=== PATIENT | female | born 1950 | race Caucasian/White ===

== ENCOUNTER 2020-04-27 19:53 | Observation (INO) | payer MEDICARE ==
[~2020-04-27] VITALS: Ht 170.2 cm; Wt 89.0 kg
[~2020-04-27 19:53] MED LIST: ASPI-515 PO; ATOR40TA78 PO; CARV12.52 PO; CARV25TA12 PO; CEPH-376 PO; CLOP75TA PO; HYDR-3237 PO; LEVO112T2 PO; LISI5TAB7 PO
--- NOTE | 2020-04-27 20:12 | NUR ---
PT ATTACHED TO MONITORS. EKG PERFORMED. ERP IN TO ASSESS. PT DENIES ANY FURTHER NEEDS. PROVIDED WITH A WARM BLANKET, CALL LIGHT IN REACH.
[2020-04-27 20:28] LABS: BASOPHILS % (AUTO) 1 % (0-1); EOSINOPHILS % (AUTO) 8 % (1-7); LYMPHOCYTES % (AUTO) 22 % (22-44); MEAN CORPUSCULAR HEMOGLOBIN 29.3 pg (27.0-34.8); MEAN CORPUSCULAR HGB CONC 33.4 g/dL (32.4-35.8); MEAN PLATELET VOLUME 7.6 fL (7.4-10.4); MONOCYTES % (AUTO) 11 % (2-9); NEUTROPHILS % (AUTO) 58 % (42-75); PLATELET COUNT 334 x10^3/uL (130-400); RED BLOOD COUNT 3.98 x10^6/uL (3.82-5.3); RED CELL DISTRIBUTION WIDTH 14.7 % (9.6-15.2)
[2020-04-27] MEDS ORDERED: SODIUM CHLORIDE FLUSH 10ML SYR IVF ONE ×2 (20:30→21:30)
[2020-04-27 20:33] LABS: MD NO
[2020-04-27 20:36] LABS: ALANINE AMINOTRANSFERASE 21 U/L (12-78); ALBUMIN 3.3 g/dL (3.4-5.0); ANION GAP 4 mmol/L (5-15); CALCIUM 9.4 mg/dL (8.5-10.1); CHLORIDE 107 mmol/L (98-107); CREATININE 2.03 mg/dL (0.55-1.02)
[2020-04-27 20:42] LABS: ALKALINE PHOSPHATASE 121 U/L (45-117); BILIRUBIN,TOTAL 0.3 mg/dL (0.2-1.0); TOTAL PROTEIN 7.9 g/dL (6.4-8.2); TROPONIN I < 0.015 ng/mL (0.000-0.045)
[2020-04-27] MEDS ORDERED: NITROGLYCERIN OINT 2%, 1GM TP ONE ×2 (21:18→21:30)
[2020-04-27] MEDS ORDERED: ONDANSETRON 2MG/ML, 2ML ONE (21:18)
[2020-04-27] MEDS ORDERED: ASPIRIN 81 MG TABLET CHEW ONE (21:18)
[2020-04-27] MEDS ORDERED: MORPHINE SULFATE 4 MG/ML, 1ML ONE (21:18)
[2020-04-27] MEDS ORDERED: ASPIRIN 81 MG TABLET CHEW PO ONE (21:30)
[2020-04-27] MEDS ORDERED: ONDANSETRON 2MG/ML, 2ML IVPush ONE (21:30)
[2020-04-27] MEDS ORDERED: MORPHINE SULFATE 4 MG/ML, 1ML IVPush PRN (21:30)
--- NOTE | 2020-04-27 21:31 | NUR ---
iv placed by remsa dislodged. Removed, new line initiated.
--- NOTE | 2020-04-27 21:55 | NUR ---
REPORT TO TOMAS LEYVA. PT DENIES ANY FURTHER NEEDS AT THIS TIME.
[2020-04-27] MEDS ORDERED: ONDANSETRON 2MG/ML, 2ML IVPush PRN (22:00)
[2020-04-27] MEDS ORDERED: hydrALAzine 20 MG/ML, 1ML IVPush PRN (22:00)
[2020-04-27] MEDS ORDERED: ACETAMINOPHEN 325 MG TABLET PO PRN (22:00)
[2020-04-27] MEDS: CARVEDILOL 12.5 MG TABLET PO SCH (22:00)
[2020-04-27] MEDS ORDERED: LABETALOL 5MG/ML, 20ML IVPush PRN (22:00)
[2020-04-27 22:18] VITALS: BP 125/79
[2020-04-27] MEDS ORDERED: NITROGLYCERIN 0.4 MG BOTTLE (25 TABS) SL PRN (23:30)
[2020-04-27] MEDS ORDERED: NITROGLYCERIN 0.4 MG/SPRAY SL PRN (23:30)
[2020-04-27 23:32] VITALS: BP 103/68
[2020-04-27] MEDS: HEPARIN 5,000 UNITS/ML, 1ML SQ SCH (23:34)
[2020-04-27] MEDS: ATORVASTATIN 40 MG TABLET PO SCH (23:35)
[2020-04-27] MEDS: morphine SULFATE 10 MG/ML, 1ML IVPush PRN (23:35)
[2020-04-27 23:40] VITALS: BP 93/60
[2020-04-27 23:52] VITALS: BP 89/53
[2020-04-28] MEDS ORDERED: SODIUM CHLORIDE 0.9%, 500ML IVBOLUS ONE
[2020-04-28] MEDS ORDERED: ALUMINUM/MAG/SIMETHICONE 30 ML UDC PO PRN
[2020-04-28 00:02] VITALS: BP 95/62
[2020-04-28 00:13] LABS: TROPONIN I < 0.015 ng/mL (0.000-0.045)
[2020-04-28 00:41] LABS: FREE T4 (FREE THYROXINE) 1.04 ng/dL (0.76-1.46)
[2020-04-28] MEDS: LEVOTHYROXINE 112 MCG TABLET PO SCH (06:11)
[2020-04-28 06:14] VITALS: BP 147/98
[2020-04-28 06:16] LABS: ANION GAP 5 mmol/L (5-15); CALCIUM 8.6 mg/dL (8.5-10.1); CHLORIDE 109 mmol/L (98-107); CREATININE 2.12 mg/dL (0.55-1.02)
[2020-04-28] MEDS: morphine SULFATE 10 MG/ML, 1ML IVPush PRN (06:17)
[2020-04-28 06:19] LABS: TROPONIN I < 0.015 ng/mL (0.000-0.045)
[2020-04-28] MEDS ORDERED: METHOCARBAMOL 500 MG TABLET PO PRN (08:30)
[2020-04-28] MEDS ORDERED: HYDROcodone/APAP 5/325 TABLET PO PRN (08:30)
[2020-04-28] MEDS: LISINOPRIL 5 MG TABLET PO SCH (08:31)
[2020-04-28] MEDS: ASPIRIN 81 MG TABLET EC PO SCH (08:32)
[2020-04-28] MEDS: CARVEDILOL 12.5 MG TABLET PO SCH ×2 (08:32→20:40)
[2020-04-28] MEDS: HEPARIN 5,000 UNITS/ML, 1ML SQ SCH ×3 (08:32→23:44)
[2020-04-28] MEDS ORDERED: CLOPIDOGREL 75 MG TABLET PO SCH (09:00)
[2020-04-28 13:58] VITALS: BP 131/82
[2020-04-28 20:38] VITALS: BP 153/79
[2020-04-28] MEDS: ATORVASTATIN 40 MG TABLET PO SCH (20:39)
[2020-04-28 23:47] VITALS: BP 109/76
[2020-04-29 02:08] VITALS: BP 143/74
[2020-04-29] MEDS: LEVOTHYROXINE 112 MCG TABLET PO SCH (05:41)
[2020-04-29 06:17] LABS: ANION GAP 6 mmol/L (5-15); CALCIUM 8.4 mg/dL (8.5-10.1); CHLORIDE 107 mmol/L (98-107)
[2020-04-29] MEDS: CLOPIDOGREL 75 MG TABLET PO SCH (08:14)
[2020-04-29] MEDS: HEPARIN 5,000 UNITS/ML, 1ML SQ SCH ×3 (08:14→23:42)
[2020-04-29] MEDS: LISINOPRIL 5 MG TABLET PO SCH (08:15)
[2020-04-29] MEDS: CARVEDILOL 12.5 MG TABLET PO SCH ×2 (08:15→21:00)
[2020-04-29] MEDS: ASPIRIN 81 MG TABLET EC PO SCH (08:15)
[2020-04-29 09:00] VITALS: BP 126/76
[2020-04-29] MEDS ORDERED: ISOSORBIDE MONONITRATE ER 30 MG TABLET PO SCH (10:30)
[2020-04-29 14:20] VITALS: BP 152/81
[2020-04-29 15:07] VITALS: BP 151/83
[2020-04-29 19:04] VITALS: BP 180/79
[2020-04-29] MEDS ORDERED: PROPRANOLOL 10 MG TABLET PO ONE (20:00)
[2020-04-29] MEDS ORDERED: LORazepam 0.5MG TABLET PO ONE (21:00)
[2020-04-29] MEDS: ATORVASTATIN 40 MG TABLET PO SCH (21:00)
[2020-04-29 21:07] LABS: TROPONIN I < 0.015 ng/mL (0.000-0.045)
[2020-04-30 01:37] VITALS: BP 106/62
[2020-04-30] MEDS: LEVOTHYROXINE 112 MCG TABLET PO SCH (05:36)
[2020-04-30 07:00] VITALS: BP 128/68
[2020-04-30] MEDS: CLOPIDOGREL 75 MG TABLET PO SCH (08:25)
[2020-04-30] MEDS: HEPARIN 5,000 UNITS/ML, 1ML SQ SCH ×2 (08:25→15:30)
[2020-04-30] MEDS: CARVEDILOL 12.5 MG TABLET PO SCH (08:25)
[2020-04-30] MEDS: ASPIRIN 81 MG TABLET EC PO SCH (08:25)
[2020-04-30] MEDS ORDERED: LISINOPRIL 5 MG TABLET PO SCH (09:00)
[2020-04-30] MEDS ORDERED: LISI5TAB7 PO (09:58)
[2020-04-30 11:17] VITALS: BP 144/76
[2020-04-30 14:29] VITALS: BP 151/82
== END 2020-04-30 16:35 | disposition home health service (06) ==
LOC: ED 21:16 → OBSVTOIN 22:01 → INTOOBSV 22:01 → EDIP 22:01 → 5SO 22:14 → DCLOUNGE 04-30 16:26
PROVIDERS: ADMIT Family Medicine; ATTEND Hospitalist
DX: R07.89 Other chest pain (principal); I25.10 Atherosclerotic heart disease of native coronary artery without angina pectoris; I13.0 Hypertensive heart and chronic kidney disease with heart failure and stage 1 through stage 4 chronic kidney disease, or unspecified chronic kidney disease; E11.22 Type 2 diabetes mellitus with diabetic chronic kidney disease; I50.9 Heart failure, unspecified; N18.4 Chronic kidney disease, stage 4 (severe); F32.9 Major depressive disorder, single episode, unspecified; E11.40 Type 2 diabetes mellitus with diabetic neuropathy, unspecified; E03.9 Hypothyroidism, unspecified; E78.5 Hyperlipidemia, unspecified; S91.302A Unspecified open wound, left foot, initial encounter; E66.9 Obesity, unspecified; I25.2 Old myocardial infarction; F12.90 Cannabis use, unspecified, uncomplicated; M19.012 Primary osteoarthritis, left shoulder; Z79.82 Long term (current) use of aspirin; Z79.899 Other long term (current) drug therapy; X58.XXXA Exposure to other specified factors, initial encounter; Y93.89 Activity, other specified; Y92.89 Other specified places as the place of occurrence of the external cause
CPT/HCPCS: 36415; 71045; 73030; 80048; 80053; 83880; 84439; 84443; 84484; 85025; 93005; 96372; 96374; 96375; 96376; 97116; 97162; 97166; 99285; G0378; J0360; J1644; J2270; J2405; J7040

== ENCOUNTER 2020-07-17 17:28 | Emergency (ER) | payer MEDICARE ==
[~2020-07-17] VITALS: Ht 170.2 cm; Wt 87.9 kg
[~2020-07-17 17:28] MED LIST changes: -ASPI-515 PO; +ASPI-963 PO
--- NOTE | 2020-07-17 17:54 | NUR ---
PT BIB EMS FOR HIGH BLOOD PRESSURE >200. PT STATES SHE IS NOW STARTING TO HAVE CP AND SOB WELL A HEADACHE. PT TOOK 2 HYDRAZALINES TODAY WITH NO EFFECT. PT CP 12/23. PT DENIES NV. 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
[2020-07-17] MEDS ORDERED: SODIUM CHLORIDE FLUSH 10ML SYR IVF ONE (18:30)
[2020-07-17 19:01] LABS: BASOPHILS % (AUTO) 1 % (0-1); EOSINOPHILS % (AUTO) 12 % (1-7); LYMPHOCYTES % (AUTO) 22 % (22-44); MEAN CORPUSCULAR HEMOGLOBIN 29.4 pg (27.0-34.8); MEAN CORPUSCULAR HGB CONC 33.5 g/dL (32.4-35.8); MEAN PLATELET VOLUME 7.3 fL (7.4-10.4); MONOCYTES % (AUTO) 11 % (2-9); NEUTROPHILS % (AUTO) 54 % (42-75); PLATELET COUNT 340 x10^3/uL (130-400); RED BLOOD COUNT 3.36 x10^6/uL (3.82-5.3); RED CELL DISTRIBUTION WIDTH 14.3 % (9.6-15.2)
[2020-07-17 19:02] LABS: MD NO
--- NOTE | 2020-07-17 19:02 | NUR ---
bedside report from Carrie MARIN, pt care transferred at this time. pt nad, resting on gurney, seizure precautions in place, bed in lowest, rails engaged, call light on lap, wctm. waiting for imaging results and labs. pt reports 04/03 headache, erp informed. awaiting orders.
[2020-07-17] MEDS ORDERED: ACETAMINOPHEN 325 MG TABLET ONE (19:07)
[2020-07-17] MEDS ORDERED: LORazepam 2 MG/ML, 1ML ONE (19:08)
[2020-07-17 19:13] LABS: ANION GAP 8 mmol/L (5-15); CALCIUM 8.1 mg/dL (8.5-10.1); CHLORIDE 109 mmol/L (98-107); CREATININE 2.05 mg/dL (0.55-1.02)
[2020-07-17 19:14] LABS: ALBUMIN 3.1 g/dL (3.4-5.0)
[2020-07-17 19:18] LABS: TROPONIN I < 0.015 ng/mL (0.000-0.045)
[2020-07-17] MEDS ORDERED: LORazepam 2 MG/ML, 1ML IVPush ONE (19:30)
[2020-07-17] MEDS ORDERED: ACETAMINOPHEN 325 MG TABLET PO ONE (19:30)
[2020-07-17] MEDS ORDERED: ENALAPRILAT 1.25 MG/ML, 2ML ONE (19:45)
--- NOTE | 2020-07-17 19:55 | NUR ---
PT MEDICATED PER MAR FOR PAIN AND BP. 5 RIGHTS REVIEWED. PT RESTING ON GURNEY, UNABLE TO TAKE MED FOR ANXIETY DUE TO DRIVING SELF HOME IF DC'D THIS EVENING. PT IS TEARY BUT APPEARS SLIGHTLY MORE COMFORTABLE, BED IN LOWEST, RAILS ENGAGED, NAD, CALL LIGHT ON LAP, WCTM. DENIES ADDITIONAL QUESTIONS OR NEEDS AT THIS TIME.
[2020-07-17] MEDS ORDERED: ENALAPRILAT 1.25 MG/ML, 2ML IV ONE (20:00)
--- NOTE | 2020-07-17 20:55 | NUR ---
late entry d/t pt care: PT MONITORING DC'D AT THIS TIME PT IS MEDICALL CLEARED FOR DC.
--- NOTE | 2020-07-17 21:32 | NUR ---
PT TO BE DC'D PT STATES SHE DOESNT HAVE A RIDE, EXPLAINED WE HAVE A TAXI THAT CAN TAKE HER 25$ WORTH. PT IS ATTEMPTING TO CALL FRIENDS.ASNDRITA.
[2020-07-17 21:50] VITALS: BP 178/75
--- NOTE | 2020-07-17 22:18 | NUR ---
rn spoke to sup regarding possibility of hotel room, called hotel states they have no rooms until august, rn discussing with sup again. gabrielle.
--- NOTE | 2020-07-17 22:42 | NUR ---
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 wctm, pt nad sitting up in chair dressed and ready to dc, offered to lay on gurney for comfort, pt states she would rather sit in the chair as this has taken awhile
--- NOTE | 2020-07-17 22:54 | NUR ---
SUP INTO ROOM TO DISCUSS RIDE WITH PT, PT NOW STATES THAT SHE LOCKED HER CARMICHAEL, ONLY CARMICHAEL, IN HOUSE AND CANNOT GET INTO HOME. ATTEMPTING TO CALL FAMILY FOR PT AT THIS TIME. SANDRITA.
--- NOTE | 2020-07-17 23:22 | NUR ---
Ever fatima in ED - 07/17/20 at 2323 by OREN late entry d/t pt care: PT MONITORING DC'D AT THIS TIME PT IS MEDICALL CLEARED FOR DC.
--- NOTE | 2020-07-17 23:23 | NUR ---
NICKYT JANNY ARRANGED PT VERBALIZED UNDERSTANDING OF DC PAPERWORK AND NEED TO FOLLOW UP WITH PCP, DENIES ADDITIONAL QUESTIONS OR NEEDS AT THIS TIME. SANDRITA
--- NOTE | 2020-07-17 23:59 | NUR ---
GMT TO PICK PT UP, WILL TRANSPORT HER HOME. PT AMB TO WHEELCHAIR.
== END 2020-07-18 00:01 | disposition home or self-care (01) ==
LOC: ED 20:16
DX: I11.0 Hypertensive heart disease with heart failure (principal); I50.9 Heart failure, unspecified; R07.89 Other chest pain; R51.9 Headache, unspecified; R94.31 Abnormal electrocardiogram [ECG] [EKG]
CPT/HCPCS: 36415; 71045; 80048; 82040; 83880; 84484; 85025; 93005; 96374; 99285

== ENCOUNTER 2020-11-24 10:54 | Outpatient (CLI) | payer MEDICARE ==
[2020-11-24] MEDS ORDERED: INSU100V8 SQ (11:18)
[2020-11-24] MEDS ORDERED: ATOR40TA78 PO (11:18)
[2020-11-24] MEDS ORDERED: LEVO50TA5 PO (11:18)
[2020-11-24] MEDS ORDERED: TORS5TAB4 PO (11:18)
[2020-11-24] MEDS ORDERED: LISI-167 PO (11:18)
[2020-11-24] MEDS ORDERED: FERR-46 PO (11:18)
[2020-11-24] MEDS ORDERED: CARV12.52 PO (11:18)
[2020-11-24] MEDS ORDERED: HYDR-3341 PO (11:18)
[2020-11-24 12:16] LABS: MICROSCOPIC AUTO
[2020-11-24 12:16] LABS: BASOPHILS % (AUTO) 1 % (0-1); EOSINOPHILS % (AUTO) 5 % (1-7); LYMPHOCYTES % (AUTO) 18 % (22-44); MEAN CORPUSCULAR HEMOGLOBIN 28.7 pg (27.0-34.8); MEAN CORPUSCULAR HGB CONC 32.8 g/dL (32.4-35.8); MEAN PLATELET VOLUME 7.4 fL (7.4-10.4); MONOCYTES % (AUTO) 11 % (2-9); NEUTROPHILS % (AUTO) 65 % (42-75); PLATELET COUNT 351 x10^3/uL (130-400); RED BLOOD COUNT 3.92 x10^6/uL (3.82-5.3); RED CELL DISTRIBUTION WIDTH 14.1 % (9.6-15.2)
[2020-11-24 12:22] LABS: ALANINE AMINOTRANSFERASE 20 U/L (12-78); ALBUMIN 3.4 g/dL (3.4-5.0); ANION GAP 5 mmol/L (5-15); CALCIUM 8.8 mg/dL (8.5-10.1); CHLORIDE 107 mmol/L (98-107); CREATININE 2.19 mg/dL (0.55-1.02)
[2020-11-24 12:23] LABS: INTERNATIONAL NORMALIZED RATIO 0.96 (0.93-1.1); PROTHROMBIN TIME 10.3 Seconds (9.6-11.5)
[2020-11-24 12:24] LABS: ALKALINE PHOSPHATASE 133 U/L (45-117); BILIRUBIN,TOTAL 0.4 mg/dL (0.2-1.0); TOTAL PROTEIN 8.4 g/dL (6.4-8.2)
== END 2020-11-24 23:59 | disposition home or self-care (01) ==
LOC: STAR 10:54
PROVIDERS: ATTEND Urology
DX: Z01.812 Encounter for preprocedural laboratory examination (principal); U07.1 COVID-19; N32.9 Bladder disorder, unspecified; I21.29 ST elevation (STEMI) myocardial infarction involving other sites
CPT/HCPCS: 36415; 80053; 81001; 85025; 85610; 87077; 87086; 87186; 93005; U0003; U0005